=== PATIENT | male | born 1985 | race Hispanic/Latino ===

== ENCOUNTER 2024-06-16 14:38 | Emergency (ER) | payer OTHER ==
[~2024-06-16] VITALS: Ht 190.5 cm; Wt 124.3 kg
[2024-06-16 14:57] VITALS: PULSE 83; RESP 18; TEMP 98.6; O2SAT 98
[2024-06-16] MEDS ORDERED: BACITRACIN ZINC 0.9GM TP ONE (15:15)
[2024-06-16] MEDS ORDERED: KEFLEX125 MG/5 M PO (15:36)
[2024-06-16] MEDS: LIDOCAINE 1% W/EPINEPHRINE 20 ML VIAL INJ ONE (15:42)
[2024-06-16] MEDS ORDERED: CEPHALEXIN500 MG PO (16:43)
== END 2024-06-16 15:48 | disposition home or self-care (01) ==
LOC: FSED 14:47
DX: S61.213A Laceration without foreign body of left middle finger without damage to nail, initial encounter (principal); W26.0XXA Contact with knife, initial encounter; Y92.89 Other specified places as the place of occurrence of the external cause; G40.909 Epilepsy, unspecified, not intractable, without status epilepticus; F17.210 Nicotine dependence, cigarettes, uncomplicated
CPT/HCPCS: 99283